=== PATIENT | male | born 1980 | race Caucasian/White ===

== ENCOUNTER 2017-12-07 17:07 | Emergency (ER) | payer BC, MEDICARE ==
[2017-12-07] MEDS ORDERED: HYDROMORPHONE HCL 2 MG/ML VIAL IVP ONE (17:38)
[2017-12-07] MEDS ORDERED: ONDANSETRON HCL IV 4 MG/2 ML VIAL IVP ONE (17:39)
--- NOTE | 2017-12-07 17:45 | Emergency Department Record ---
History of Present Illness - General Chief Complaint: Abdominal Pain Stated Complaint: ABDOMINAL PAIN Time Seen by Provider: 12/07/17 17:29 Source: Patient Mode of Arrival: Ambulatory Limitations: No limitations - History of Present Illness Initial Comments: pt has had 2 hrs of severe rlq pain w nausea. no v/c/d. pain waxes and wanes in intensity. pt has never had this type of pain. pt had multiple injuries in [place] and has a service dog for ptsd. pt denies any testicular pain MD Complaint: Abdominal pain Onset/Timin -: Hour(s) Location: RLQ Radiation: None Severity: Severe Severity scale (1-10): 10 Consistency: Constant Improves With: Nothing Worsens With: Nothing Associated Symptoms: Nausea - Related Data Home Medications Medication Instructions Recorded Confirmed Last Taken Alprazolam 1 mg PO ASDIR 12/07/17 12/07/17 Unknown Methadone HCl 10 mg PO BID 12/07/17 12/07/17 Unknown Allergies Allergy/AdvReac Type Severity Reaction Status Date / Time morphine Allergy BEHAVIORAL Verified 12/07/17 17:28 CHANGES Travel Screening - Travel/Exposure Within Last 30 Days Have you traveled within the last 30 days?: No Review of Systems Reviewed: No additional complaints except as noted below Constitutional: Reports: As per HPI. Denies: Chills, Fever, Malaise, Night sweats, Weakness, Weight change Eyes: Reports: As per HPI. Denies: Eye discharge, Eye pain, Photophobia, Vision change ENT: Reports: As per HPI. Denies: Congestion, Dental pain, Ear pain, Epistaxis , Hearing loss, Throat pain Respiratory: Reports: As per HPI. Denies: Cough, Dyspnea, Hemoptysis, Stridor, Wheezes Cardiovascular: Reports: As per HPI. Denies: Arrhythmia, Chest pain, Dyspnea on exertion, Edema, Murmurs, Orthopnea, Palpitations, Paroxysmal nocturnal dyspnea, Rheumatic Fever, Syncope Endocrine: Reports: As per HPI. Denies: Fatigue, Heat or cold intolerance, Polydipsia, Polyuria Gastrointestinal: Reports: As per HPI, Abdominal pain, Nausea. Denies: Constipation, Diarrhea, Hematemesis, Hematochezia, Melena, Vomiting Genitourinary: Reports: As per HPI. Denies: Dysuria, Frequency, Hematuria, Incontinence, Retention, Testicular pain, Testicular mass, Urgency Musculoskeletal: Reports: As per HPI. Denies: Arthralgia, Back pain, Gout, Joint swelling, Myalgia, Neck pain Skin: Reports: As per HPI. Denies: Bruising, Change in color, Change in hair/ nails, Lesions, Pruritus, Rash Neurological: Reports: As per HPI. Denies: Abnormal gait, Confusion, Headache, Numbness, Paresthesias, Seizure, Tingling, Tremors, Vertigo, Weakness Psychiatric: Reports: As per HPI. Denies: Anxiety, Auditory hallucinations, Depression, Homicidal thoughts, Suicidal thoughts, Visual hallucinations Hematological/Lymphatic: Reports: As per HPI. Denies: Anemia, Blood Clots, Easy bleeding, Easy bruising, Swollen glands Past Medical History - SOCIAL HISTORY Smoking Status: Never smoker Alcohol Use: None Drug Use: None - RESPIRATORY Hx Respiratory Disorders: No - CARDIOVASCULAR Hx Cardio Disorders: No - NEURO Hx Neuro Disorders: No - GI Hx GI Disorders: No - Hx Genitourinary Disorders: No - ENDOCRINE Hx Endocrine Disorders: No - MUSCULOSKELETAL Hx Musculoskeletal Disorders: Yes Hx Back Injury: Yes - PSYCH Hx Psych Problems: Yes Hx Anxiety: Yes - HEMATOLOGY/ONCOLOGY Hx Hematology/Oncology Disorders: No Family Medical History Any Significant Family History?: No Physical Exam - General General Appearance: Alert, Oriented x3, Cooperative, Moderate distress - Head Head exam: Normal inspection - Eye Eye exam: Normal appearance, PERRL, EOMI Pupils: Normal accommodation - ENT ENT exam: Normal exam, Mucous membranes moist, Normal external ear exam, Normal orophraynx Ear exam: Normal external inspection. negative: External canal tenderness Nasal Exam: Normal inspection. negative: Discharge, Sinus tenderness Mouth exam: Normal external inspection, Tongue normal Teeth exam: Normal inspection. negative: Dental caries Throat exam: Normal inspection. negative: Tonsillar erythema, Tonsillar exudate - Neck Neck exam: Normal inspection, Full ROM. negative: Tenderness - Respiratory Respiratory exam: Normal lung sounds bilaterally. negative: Respiratory distress - Cardiovascular Cardiovascular Exam: Regular rate, Normal rhythm, Normal heart sounds - GI/Abdominal GI/Abdominal exam: Soft, Normal bowel sounds, Guarding, Tenderness (rlq) - Rectal Rectal exam: Deferred - exam: Deferred - Extremities Extremities exam: Normal inspection, Full ROM, Normal capillary refill. negative: Tenderness - Back Back exam: Reports: Normal inspection, Full ROM. Denies: Muscle spasm, Rash noted, Tenderness - Neurological Neurological exam: Alert, CN II-XII intact, Normal gait, Oriented X3 - Psychiatric Psychiatric exam: Normal affect, Normal mood - Skin Skin exam: Dry, Intact, Normal color, Warm Course Vital Signs 12/07/17 17:23 Temperature 97.8 F Pulse Rate 58 L Respiratory 20 Rate Blood Pressure 139/100 Pulse Ox 58 L - Reevaluation(s) Reevaluation #1: 12/07/17 20:12 pt feels much better after toradol. pain is down to a 2. Reevaluation #2: 12/07/17 20:[address] hawkins Medical Decision Making - Lab Data Result diagrams: 12/07/17 17:25 12/07/17 17:25 Disposition Quality - Quality Measures Quality Measures: N/A - Blood Pressure Screening Does Patient Have Any of the Following: No Blood Pressure Classification: Hypertensive Reading Systolic Measurement: 139 Diastolic Measurement: 100 Screening for High Blood Pressure: < First Hypertensive BP, F/U Documented > [ [id number]] First Hypertensive Follow-up Interventions: Follow-up with rescreen GT 1 day and LT 4 weeks.
[2017-12-07] MEDS ORDERED: 0.9 % SODIUM CHLORIDE 1,000 ML BAG IV ONE ×2 (17:49→19:25)
[2017-12-07 17:58] LABS: BASO % 0.3 % (0-6); GRAN % 59.2 % (47-80); HEMATOCRIT 45.1 % (42.0-52.0); HEMOGLOBIN 15.2 gm/dl (14.0-18.0); LYMPH % 32.1 % (16-45); MEAN CELL VOLUME 88.6 fl (81-97); MEAN CORPUSCULAR HEMOGLOBIN 29.9 pg (27-33); MEAN CORPUSCULAR HGB CONC 33.7 g/dl (32-36); MEAN PLATELET VOLUME 10.5 fl (7.4-10.4); MONO % 8.4 % (0-9); PLATELET COUNT 353 K/uL (130-400); RED BLOOD COUNT 5.09 M/uL (4.40-5.70); RED CELL DISTRIBUTION WIDTH 12.5 % (11.5-14.5)
[2017-12-07] MEDS ORDERED: ONDANSETRON HCL IV 4 MG/2 ML VIAL IM ONE (18:07)
[2017-12-07] MEDS ORDERED: HYDROMORPHONE HCL 2 MG/ML VIAL IM ONE (18:07)
[2017-12-07 18:16] LABS: BLOOD UREA NITROGEN 15 mg/dL (6-20); CREATININE 0.9 mg/dL (0.7-1.2); EST GLOMERULAR FILTRATION RATE > 60 mL/min
[2017-12-07 18:19] LABS: GLUCOSE,RANDOM 136 mg/dL (74-109)
[2017-12-07 18:21] LABS: LIPASE 27 U/L (13-60)
[2017-12-07] MEDS ORDERED: KETOROLAC 30 MG/ML VIAL IVP ONE (19:24)
--- NOTE | 2017-12-07 20:35 | Emergency Department Record ---
History of Present Illness - General Chief Complaint: Abdominal Pain Stated Complaint: ABDOMINAL PAIN Time Seen by Provider: 12/07/17 17:29 Source: Patient Mode of Arrival: Ambulatory Limitations: No limitations - History of Present Illness MD Complaint: Abdominal pain Onset/Timin -: Hour(s) Location: RLQ Radiation: None Severity: Severe Severity scale (1-10): 10 Consistency: Constant Improves With: Nothing Worsens With: Nothing Associated Symptoms: Nausea - Related Data Home Medications Medication Instructions Recorded Confirmed Last Taken Alprazolam 1 mg PO ASDIR 12/07/17 12/07/17 Unknown Methadone HCl 10 mg PO BID 12/07/17 12/07/17 Unknown Previous Rx's Medication Instructions Recorded Ibuprofen [Motrin] 800 mg PO Q6H PRN #30 tab 12/07/17 Tamsulosin HCl [Flomax] 0.4 mg PO DAILY #15 cap.er.24h 12/07/17 Allergies Allergy/AdvReac Type Severity Reaction Status Date / Time morphine Allergy BEHAVIORAL Verified 12/07/17 17:28 CHANGES Travel Screening - Travel/Exposure Within Last 30 Days Have you traveled within the last 30 days?: No Review of Systems Constitutional: Reports: As per HPI. Denies: Chills, Fever, Malaise, Night sweats, Weakness, Weight change Eyes: Reports: As per HPI. Denies: Eye discharge, Eye pain, Photophobia, Vision change ENT: Reports: As per HPI. Denies: Congestion, Dental pain, Ear pain, Epistaxis , Hearing loss, Throat pain Respiratory: Reports: As per HPI. Denies: Cough, Dyspnea, Hemoptysis, Stridor, Wheezes Cardiovascular: Reports: As per HPI. Denies: Arrhythmia, Chest pain, Dyspnea on exertion, Edema, Murmurs, Orthopnea, Palpitations, Paroxysmal nocturnal dyspnea, Rheumatic Fever, Syncope Endocrine: Reports: As per HPI. Denies: Fatigue, Heat or cold intolerance, Polydipsia, Polyuria Gastrointestinal: Reports: As per HPI, Abdominal pain, Nausea. Denies: Constipation, Diarrhea, Hematemesis, Hematochezia, Melena, Vomiting Genitourinary: Reports: As per HPI. Denies: Dysuria, Frequency, Hematuria, Incontinence, Retention, Testicular pain, Testicular mass, Urgency Musculoskeletal: Reports: As per HPI. Denies: Arthralgia, Back pain, Gout, Joint swelling, Myalgia, Neck pain Skin: Reports: As per HPI. Denies: Bruising, Change in color, Change in hair/ nails, Lesions, Pruritus, Rash Neurological: Reports: As per HPI. Denies: Abnormal gait, Confusion, Headache, Numbness, Paresthesias, Seizure, Tingling, Tremors, Vertigo, Weakness Psychiatric: Reports: As per HPI. Denies: Anxiety, Auditory hallucinations, Depression, Homicidal thoughts, Suicidal thoughts, Visual hallucinations Hematological/Lymphatic: Reports: As per HPI. Denies: Anemia, Blood Clots, Easy bleeding, Easy bruising, Swollen glands Past Medical History - SOCIAL HISTORY Smoking Status: Never smoker Alcohol Use: None Drug Use: None - RESPIRATORY Hx Respiratory Disorders: No - CARDIOVASCULAR Hx Cardio Disorders: No - NEURO Hx Neuro Disorders: No - GI Hx GI Disorders: No - Hx Genitourinary Disorders: No - ENDOCRINE Hx Endocrine Disorders: No - MUSCULOSKELETAL Hx Musculoskeletal Disorders: Yes Hx Back Injury: Yes - PSYCH Hx Psych Problems: Yes Hx Anxiety: Yes - HEMATOLOGY/ONCOLOGY Hx Hematology/Oncology Disorders: No Family Medical History Any Significant Family History?: No Physical Exam - General Limitations: No limitations Course Vital Signs 12/07/17 12/07/17 17:23 20:00 Temperature 97.8 F Pulse Rate 58 L Pulse Rate [ 72 Pulse Ox Probe] Respiratory 20 18 Rate Blood Pressure 139/100 Blood Pressure 116/73 [Left Arm] Pulse Ox 98 98 - Reevaluation(s) Reevaluation #1: 12/07/17 20:29 CT Abdomen and Pelvis: 4 mm calculus obstructing proximal right ureter Normal appendix Old T12 compression fracture Assumed care from previous provider, resting comfortably at this time, pain 2/ 10. HPI per previous provider as well. Patient was updated on his CT imaging report, will arrange for follow-up with Urology tomorrow for further evaluation. Patient also reports that he has pain medication at home for his symptoms. Medical Decision Making - Lab Data Result diagrams: 12/07/17 17:25 12/07/17 17:25 Lab Results 12/07/17 12/07/17 Range/Units 17:25 17:25 WBC 12.0 (4.2-12.2) K/uL RBC 5.09 (4.40-5.70) M/uL Hgb 15.2 (14.0-18.0) gm/dl Hct 45.1 (42.0-52.0) % MCV 88.6 (81-97) fl MCH 29.9 (27-33) pg MCHC 33.7 (32-36) g/dl RDW 12.5 (11.5-14.5) % Plt Count 353 (130-400) K/uL MPV 10.5 H (7.4-10.4) fl Gran % 59.2 (47-80) % Lymphocytes % 32.1 (16-45) % Monocytes % 8.4 (0-9) % Eosinophils % 0.0 (0-6) % Basophils % 0.3 (0-6) % Sodium 140 (136-145) mmol/L Potassium 3.2 L (3.4-4.5) mmol/L Chloride 97 L (98-107) mmol/L Carbon Dioxide 25.0 (22-29) mmol/L Anion Gap 18.0 H (7-16) BUN 15 (6-20) mg/dL Creatinine 0.9 (0.7-1.2) mg/dL Estimated GFR > 60 mL/min Random Glucose 136 H (74-109) mg/dL Calcium 9.1 (8.6-10.0) mg/dL Lipase 27 (13-60) U/L Disposition Disposition: Discharge Clinical Impression: Kidney stone on right side Disposition: Home, Self-Care Condition: (2) Stable Instructions: Kidney Stones (ED) Additional Instructions: Return to ED if your symptoms worsen or if you have any concerns. Flomax as directed. Follow-up with Dr. Cohen tomorrow as directed. Prescriptions: Ibuprofen [Motrin] 800 mg PO Q6H PRN #30 tab PRN Reason: Pain - Mild To Moderate (1-7) Tamsulosin HCl [Flomax] 0.4 mg PO DAILY #15 cap.er.24h Referrals: PERRY COHEN M.D. [MEDICAL DOCTOR] - [facility] [Provider Group] Forms: Patient Portal Access Time of Disposition: 20:36 Quality - Quality Measures Quality Measures: N/A - Blood Pressure Screening Does Patient Have Any of the Following: No Blood Pressure Classification: Normal BP Reading Systolic Measurement: 115 Diastolic Measurement: 79 Screening for High Blood Pressure: < Normal BP, F/U Not Required > [G2636] First Hypertensive Follow-up Interventions: Referral to alternative/primary care provider.
--- NOTE | 2017-12-09 08:22 | CT SCAN REPORT ---
EXAM: EMERGENCY CT OF THE ABDOMEN AND PELVIS WITHOUT CONTRAST HISTORY: RIGHT SIDED ABDOMINAL PAIN. TECHNIQUE: Axial CT scan of the abdomen and pelvis was performed without oral or IV contrast at the referring physician's request. Comparison: None. FINDINGS: A preliminary report was provided by [facility]. No calcified gallstones are seen within the gallbladder. No intrarenal calculi identified on either side. There is mild hydronephrosis on the right with mild dilatation of the upper right ureter which leads to an approximately 3.9 mm calcification in the upper right ureter consistent with an upper right ureteral calculus causing a component of obstruction. Distal to this the right ureter is nondilated and difficult to follow, but no definite additional more distal right ureteral calculus seen. No hydronephrosis or hydroureter on the left with the left ureter also difficult to follow in its nondilated state, but with no definite left ureteral calculus seen and no bladder calculus evident. Evaluation of the bowel and viscera very limited without oral or IV contrast. Given this limitation, no definite hepatic, splenic, adrenal, pancreatic, or renal mass identified. Surgical clip left hemiscrotum presumably from prior vasectomy. The appendix is visualized and appears negative with no appendicitis evident. The lung bases are clear. No free intraperitoneal air or free intraperitoneal fluid identified. The patient is postop lumbosacral fusion with posterior intrapedicular screws and bridging vertical rods. There is an interspace stabilizer at the lumbosacral interspace as well. This metallic hardware creates some artifact. There is also moderate compression of the superior end plate of the body of T12. This is presumably chronic although comparison with old films would be useful to confirm. IMPRESSION: 1. APPROXIMATELY 3.9 MM UPPER RIGHT URETERAL CALCULUS CAUSING A COMPONENT OF OBSTRUCTION. NO OTHER URINARY TRACT CALCULI IDENTIFIED. 2. POSTOP LUMBOSACRAL FUSION WITH METALLIC ORTHOPEDIC HARDWARE ARTIFACT EVIDENT. 3. 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 JOB NUMBER: [id number] [facility]
== END 2017-12-07 21:04 | disposition home or self-care (01) ==
LOC: ER 17:07
DX: N20.1 Calculus of ureter (principal); R10.31 Right lower quadrant pain; R11.0 Nausea
CPT/HCPCS: 74176; 80048; 83690; 85025; 96361; 96372; 96374; 99284; J1885; J2405; J7030